=== PATIENT | male | born 1945 | race Caucasian/White ===

== ENCOUNTER 2019-07-27 10:07 | Inpatient (IN) | payer MEDICARE ==
[~2019-07-27] VITALS: Ht 172.7 cm; Wt 67.1 kg
[2019-07-27] MEDS ORDERED: TERA2CAP4 PO (10:31)
[2019-07-27] MEDS ORDERED: TRAM50TA2 PO (10:32)
[2019-07-27] MEDS ORDERED: NYST5ORA PO (10:32)
[2019-07-27] MEDS ORDERED: LISI-607 PO (10:32)
[2019-07-27] MEDS ORDERED: ALPR0.255 PO (10:32)
[2019-07-27] MEDS ORDERED: CIPR500S3 PO (10:32)
[2019-07-27] MEDS ORDERED: CLOP75TA15 PO (10:32)
[2019-07-27] MEDS ORDERED: OXYB10TA2 PO (10:32)
[2019-07-27] MEDS ORDERED: TRIA10PO3 MC (10:32)
[2019-07-27] MEDS ORDERED: GABA-532 PO (10:32)
[2019-07-27] MEDS ORDERED: ARMO250T2 PO (10:32)
[2019-07-27] MEDS ORDERED: MELO-107 PO (10:32)
[2019-07-27] MEDS ORDERED: BENA20TA9 PO (10:36)
[2019-07-27] MEDS ORDERED: CELE100C PO (10:36)
[2019-07-27] MEDS ORDERED: AMLO5TAB4 PO (10:36)
[2019-07-27] MEDS ORDERED: PILO5TAB PO (10:36)
[2019-07-27] MEDS ORDERED: DORZ10DR13 OP (10:37)
[2019-07-27] MEDS ORDERED: LATA2.5D7 OP (10:37)
[2019-07-27] MEDS ORDERED: SIMV20TA6 PO (10:37)
[2019-07-27] MEDS ORDERED: BRIM5DRO5 OP (10:37)
[2019-07-27 10:40] VITALS: BP 119/71
--- NOTE | 2019-07-27 10:40 | NUR ---
CONTENT PUBLISHER NOTES PATIENT DIRECT ADMIT BROUGHT BY AMBULANCE. PATIENT 5150 HOLD ON DX OF GD, PSYCHOSIS NOS. PATIENT A/O X3, NO ACUTE RESPIRATORY DISTRESS, V.S TAKEN T-98.6, P-62, R-18, BP-119/71, O2-96 ROOM AIR. PATIENT REDIRECTABLE, COOPERATIVE, REFUSED SI/HI/AVH AT THIS TIME. ENCOURAGED TO EXPRESS FEELINGS AND CONCERNS. PATIENT AMBULATORY SELF CARE. ON FACE TO FACE ASSESSMENT PATIENT DEPRESS. HAS NO PLANA TO HARM SELF. SKIN ASSESSMENT DONE INTACT, PATIENT USING BATHROOM. BELONGING AND CONTRABAND CHECKED, DR GERONIMO AND DR KELLY AWARE OF NEW PATIENT AND MEDICATION. CONTINUED MONITORING.
[2019-07-27 16:00] VITALS: BP 153/80
[2019-07-27] MEDS ORDERED: MAGNESIUM HYDROXIDE 30 ML UDC PO PRN (16:30)
[2019-07-27] MEDS ORDERED: ZOLPIDEM TARTRATE 10 MG TABLET PO PRN (16:30)
[2019-07-27] MEDS ORDERED: ACETAMINOPHEN 325 MG TABLET PO PRN (16:30)
[2019-07-27] MEDS ORDERED: LORAZEPAM 0.5 MG TABLET PO PRN (16:30)
[2019-07-27] MEDS ORDERED: MAG HYDROX/AL HYDROX/SIMETH 30 ML UDC PO PRN (16:30)
[2019-07-27] MEDS ORDERED: CELECOXIB 100 MG CAPSULE PO PRN (17:00)
[2019-07-27] MEDS ORDERED: PILOCARPINE HCL 5 MG TABLET PO SCH (17:00)
[2019-07-27] MEDS ORDERED: TRAMADOL HCL 50 MG TABLET PO PRN (17:00)
[2019-07-27] MEDS ORDERED: TRIAMCINOLONE ACETONIDE 0.1% CR 15 GM TUBE TP SCH (17:30)
[2019-07-27] MEDS: GABAPENTIN 100 MG CAPSULE PO SCH (17:55)
[2019-07-27] MEDS: BENAZEPRIL HCL 20 MG TABLET PO SCH (17:56)
[2019-07-27] MEDS: AMLODIPINE BESYLATE 5 MG TABLET PO SCH (17:56)
[2019-07-27] MEDS ORDERED: LEVOFLOXACIN (500MG) 500 MG TABLET PO ONE (18:00)
[2019-07-27] MEDS ORDERED: LEVOFLOXACIN (500MG) 500 MG TABLET PO SCH (18:00)
[2019-07-27 18:30] LABS: CALCIUM, SERUM 9.3 mg/dL (8.5-10.1); POTASSIUM 3.7 mmol/L (3.5-5.1)
[2019-07-27] MEDS: TIMOLOL MAL/DORZOLAM HCL OPHTH 10 ML BOTTLE OP SCH (19:28)
[2019-07-27] MEDS: NYSTATIN SUSP 100,000 U/ML BOTTLE PO SCH ×2 (19:28→22:28)
[2019-07-27] MEDS: BRIMONIDINE TARTRATE OPHT SOLN 5 ML BOTTLE OP SCH (19:28)
[2019-07-27 20:00] VITALS: BP 129/71
--- NOTE | 2019-07-27 20:00 | NUR ---
GPS OVERFLOW NOTES PT RECEIVED FROM GPS. PT IS A/OX3, HARD OF HEARING. ON ROOM AIR, BREATHING EVEN AND UNLABORED. DENIES SOB AND PAIN AT THIS TIME. IN NO ACUTE DISTRESS. NO IV ACCESS PER PROTOCOL. ORIENTED PT TO ROOM. CALL LIGHT OUT OF REACH FOR SAFETY. SITTER AT BEDSIDE. BED IN LOW/LOCKED POSITION WITH BILAT. UPPER SIDE RAILS IN PLACE. NO BEHAVIORAL ISSUES NOTED AT THIS TIME. WILL CONTINUE TO MONITOR AND IMPLEMENT FREQUENT SAFETY CHECKS
[2019-07-27] MEDS: SIMVASTATIN 20 MG TABLET PO SCH (21:48)
[2019-07-27] MEDS: LATANOPROST EYE DROP 0.005% 2.5 ML BOTTLE OP SCH (21:48)
[2019-07-27] MEDS: TERAZOSIN HCL 1 MG CAPSULE PO SCH (21:50)
[2019-07-28 06:47] LABS: ALBUMIN 3.3 g/dL (3.4-5.0); BILIRUBIN,TOTAL 0.4 mg/dL (0.2-1.0); POTASSIUM 3.9 mmol/L (3.5-5.1)
[2019-07-28 06:52] LABS: CHOLESTEROL 187 mg/dL (<200); HDL CHOLESTEROL 68 mg/dL (40-60); LDL 105 mg/dL (0-99); TRIGLYCERIDES 61 mg/dL (30-150)
--- NOTE | 2019-07-28 06:59 | NUR ---
GPS OVERFLOW CLOSING NOTES PT AWAKE, SITTING UP IN BED. A/OX3. ON ROOM AIR, BREATHING EVEN AND UNLABORED. DENIES SOB AND PAIN AT THIS TIME. DENIES SI/HI, NO HALLUCINATIONS NOTED. NO BEHAVIORAL ISSUES DURING SHIFT. CALM AND COMPLIANT WITH CARE AND MEDICATIONS. SLEPT APPROX 6 HOURS. ALL NEEDS MET AND ATTENDED. NO SIGNIFICANT CHANGES OVERNIGHT. BED IN LOW/LOCKED POSITION. BILAT. UPPER SIDE RAILS IN PLACE. SITTER AT BEDSIDE. WILL ENDORSE TO DAY SHIFT RN MARICRUZ.
--- NOTE | 2019-07-28 07:25 | NUR ---
GPS OVERFLOW THE PATIENT IS RECEIVED AWAKE AND IN BED. SITTER AT THE BEDSIDE. PATIENT ALERT AND ORIENTED X3 WITH FEW EPISODES OF FORGETFULNESS. PATIENT HARD OF HEARING. DENIES SI/HI. PATIENT CALM AND COOPERATIVE. NO IV ACCESS. PATIENT HAS STABLE GAIT. BED LOW AND LOCKED. SIDE RAILS UP X2. CALL LIGHT WITHIN REACH. WILL CONTINUE TO MONITOR.
[2019-07-28 08:00] VITALS: BP 114/69
[2019-07-28] MEDS: AMLODIPINE BESYLATE 5 MG TABLET PO SCH ×2 (08:43→16:55)
[2019-07-28] MEDS: GABAPENTIN 100 MG CAPSULE PO SCH ×2 (08:43→17:58)
[2019-07-28] MEDS: BENAZEPRIL HCL 20 MG TABLET PO SCH ×2 (08:43→16:55)
[2019-07-28] MEDS: MELOXICAM 7.5 MG TABLET PO SCH (08:43)
[2019-07-28] MEDS: OXYBUTYNIN CHLORIDE 5 MG TABLET PO SCH (08:43)
[2019-07-28] MEDS: CLOPIDOGREL BISULFATE 75 MG TABLET PO SCH (08:43)
[2019-07-28] MEDS: LISINOPRIL (5MG) 5 MG TABLET PO SCH (08:44)
[2019-07-28] MEDS: BRIMONIDINE TARTRATE OPHT SOLN 5 ML BOTTLE OP SCH ×3 (08:45→17:59)
[2019-07-28] MEDS: TIMOLOL MAL/DORZOLAM HCL OPHTH 10 ML BOTTLE OP SCH ×2 (08:45→17:59)
[2019-07-28] MEDS ORDERED: PILOCARPINE HCL 5 MG TABLET PO SCH ×2 (09:00→17:00)
[2019-07-28] MEDS ORDERED: TRIAMCINOLONE TP SCH (09:00)
--- NOTE | 2019-07-28 10:26 | NUR ---
MS/RN NOTE SALAGEN 5 MG IS NOT ADMINISTERED. PER PHARMACY THE MEDICATION IS NOT AVAILABLE IN OUR PHARMACY. FAMILY IS MADE AWARE TO PROVIDE THE MEDICATION.
--- NOTE | 2019-07-28 10:28 | NUR ---
MS/RN NOTE WAITING FOR PHARMACY TO FILL UP THE OMNICELL WITH NYSTATIN. WILL CONTINUE TO FOLLOW UP.
--- NOTE | 2019-07-28 10:30 | NUR ---
GPS OVERFLOW PER PATIENT`S (ITZEL) PATIENT HAS HX OF VASCULAR DEMENTIA FOR 8 YEARS, SHE IS CONCERNED THAT HE MIGHT HAVE ANOTHER CVA AND SHE WANTS TRANSFER THE PATIENT TO [facility] IN [place]. UPON MY ASSESSMENT THE PATIENT HAS NO APPARENT S/S OF CVA. DR KELLY IS MADE AWARE OF `S CONCERNS AND NO NEW ORDER. WILL CONTINUE TO MONITOR.
[2019-07-28] MEDS: NYSTATIN (PYXIS) 500,000 UNIT/5 ML ORAL.SUSP PO SCH ×4 (11:10→21:07)
--- NOTE | 2019-07-28 13:09 | NUR ---
Contact with responsible libertarian: LEXX met with patient�s Letha Mayfield [phone] outside of patient�s room to discuss discharge planning. Letha was agreeable to meet with LEXX. Per Letha, the patient currently suffers from Vascular Dementia and is currently not receiving any medication to treatment its symptoms. Per Letha, the patient was diagnosed with Vascular Dementia in 2012 and it has slowly progressed since. Per Letha, she believes the patient should not be in the unit as "it is not a mental health problem". LEXX provided psychoeducation to Letha regarding 5150, 5250 holds, what the process looks like and why the patient was deemed a danger to himself and a danger to others at the time of evaluation. Letha expressed understanding and was agreeable that he could not seek for safety, had poor judgement and poor insight at the time of evaluation. Letha expressed understanding that the patient benefits from his stay in the donal-psych unit.
--- NOTE | 2019-07-28 13:21 | NUR ---
Initial Discharge plan: LEXX spoke to patient�s , Letha Mayfield [phone] at patient�s bed side to discuss discharge planning. Per Letha, the patient may return home [[address], [facility] [address]] with her when ready for discharge. Per Letha, they are interested in outpatient psychiatry services as the patient is having more continuous episodes of confusion, aggression and paranoia. Per Letha, the patient is not connected with any community resources or outpatient psychiatrist. LEXX provided family with Alzheimer[facility] [place] [facility] [[phone]; [email or web address] ]as they may refer the family to support services in [place], [place]. LEXX will continue to collaborate with Interdisciplinary team to ensure safe and proper discharge planning.
--- NOTE | 2019-07-28 13:30 | NUR ---
LEXX met with patient�s , Letha Mayfield ([phone]), with the pt present and the reason behind the pts admission was discussed as well as what options are available. The pts and the pt himself stated that they do not think that the pts admission is necessary because he has vascular dementia and his conditions is more medical. LEXX stated that the psychiatrist will have to meet with the pt before any decision can be made and that the psychiatrist is the only one who can make a decision at this time. LEXX stated that she will keep them updated regarding his treatment.
--- NOTE | 2019-07-28 15:25 | NUR ---
Group Note: SW encouraged the pt to attend group therapy on 07/28/19 at 2pm but the pt was visiting with his and stated that he did not want to enter the geripsychiatric unit. Pt stated that he does not feel that it was appropriate for him to be placed in that unit with the pt population. SW stated that as he is on a hold he is technically part of the unit and that part of his treatment plan is to participate in group therapy. Pt refused to participate.
--- NOTE | 2019-07-28 15:41 | NUR ---
GPS NOTE RECEIVED TELEPHONE ORDER FROM DR KELLY FOR CT HEAD WITHOUT CONTRAST. THE ORDER IS READ BACK, VERIFIED. NOTED AND CARRIED OUT.
--- NOTE | 2019-07-28 16:49 | NUR ---
GPS OV RN NOTES ITZEL AT BEDSIDE. REQUESTING THAT SHE TAKE PATIENT'S BELONGINGS/CONTRABAND FROM NURSING SAFE AND SHE WILL TAKE THEM HOME. OBTAINED BELONGINGS FROM NURSING RADIO PROGRAM DIRECTOR SAFE. VERIFIED BELONGINGS WITH PATIENT AND ITZEL. INCLUDES, BUT NOT LIMITED TO, PATIENT'S WALLET WITH [place] ID AND CREDIT CARDS, 103$ (20$ X 5 + 1$ X 3), UTILITY KNIFE, CELLPHONE AND COMMERCIAL ACCOUNTANT, KEYS. UPDATED PATIENT'S LIST
[2019-07-28] MEDS ORDERED: LEVOFLOXACIN (500MG) 500 MG TABLET PO SCH ×2 (18:00→18:30)
--- NOTE | 2019-07-28 18:16 | NUR ---
GPS OVERFLOW THE PATIENT ALERT AND ORIENTED X3 WITH SHORT EPISODES OF FORGETFULNESS. REMINDERS PROVIDED NEEDED. DENIES PAIN. RESPIRATION REGULAR AND UNLABORED. IN ROOM AIR AND SATURATION IS AT 98%. PATIENT IN NO APPARENT DISTRESS. NO IV ACCESS. THE PATIENT IS GIVEN VERBAL CUES TO KEEP SAFETY AWARENESS HIGH. ALL NEEDS ATTENDED AND ANTICIPATED. BED LOW AND LOCKED. SIDE RAILS UP X2. WILL ENDORSE TO MANAGER COST.
[2019-07-28 19:18] VITALS: BP 92/52
--- NOTE | 2019-07-28 19:30 | NUR ---
GPS/RN OPENING NOTES PT RECEIVED AWAKE, RESTING COMFORTABLY IN BED. SITTER AT BEDSIDE. A/OX3. ON ROOM AIR, BREATHING EVEN AND UNLABORED. DENIES SOB AND PAIN AT THIS TIME. NO IV ACCESS PER PROTOCOL. DENIES SI/HI. DENIES HALLUCINATIONS. CALM AND COOPERATIVE. BED IN LOW/LOCKED POSITION WITH CALL LIGHT OUT OF REACH FOR PT SAFETY. HOB ELEVATED AND BILAT. UPPER SIDE RAILS IN PLACE. WILL CONTINUE TO MONITOR
[2019-07-28 20:00] VITALS: BP 92/53
[2019-07-28 21:00] VITALS: BP 92/56
[2019-07-28] MEDS: LATANOPROST EYE DROP 0.005% 2.5 ML BOTTLE OP SCH (21:07)
[2019-07-28] MEDS: SIMVASTATIN 20 MG TABLET PO SCH (21:07)
[2019-07-28] MEDS: TERAZOSIN HCL 1 MG CAPSULE PO SCH (21:10)
--- NOTE | 2019-07-29 06:41 | NUR ---
GPS/RN CLOSING NOTES PT ASLEEP, SITTER AT BEDSIDE. PT IS RESPONSIVE TO NAME/LIGHT TOUCH. A/OX3. HAS BILATERAL HEARING AIDS AT THE BEDSIDE. ON ROOM AIR, BREATHING EVEN AND UNLABORED. DENIES SOB AND PAIN. NO IV ACCESS PER PROTOCOL. DENIES SI/HI AND HALLUCINATIONS. NO SIGNIFICANT CHANGES OVERNIGHT. ALL NEEDS MET AND ANTICIPATED. MED COMPLIANT, CALM AND COOPERATIVE. NO BEHAVIORAL ISSUES NOTED. SLEPT APPROX. 8HOURS. BED IN LOW/LOCKED POSITION WITH CALL LIGHT OUT OF REACH FOR SAFETY. BILAT. UPPER SIDE RAILS IN PLACE. WILL ENDORSE TO DAY SHIFT RN MARICRUZ.
[2019-07-29] MEDS: BRIMONIDINE TARTRATE OPHT SOLN 5 ML BOTTLE OP SCH (08:59)
[2019-07-29] MEDS: TIMOLOL MAL/DORZOLAM HCL OPHTH 10 ML BOTTLE OP SCH (08:59)
[2019-07-29 09:00] VITALS: BP 108/63
[2019-07-29] MEDS ORDERED: ESCITALOPRAM OXALATE (10 MG) 10 MG TABLET PO SCH (09:00)
[2019-07-29] MEDS: MELOXICAM 7.5 MG TABLET PO SCH (09:00)
[2019-07-29] MEDS: LISINOPRIL (5MG) 5 MG TABLET PO SCH (09:00)
[2019-07-29] MEDS: AMLODIPINE BESYLATE 5 MG TABLET PO SCH (09:00)
[2019-07-29] MEDS: BENAZEPRIL HCL 20 MG TABLET PO SCH (09:00)
[2019-07-29] MEDS: OXYBUTYNIN CHLORIDE 5 MG TABLET PO SCH (09:02)
[2019-07-29] MEDS: GABAPENTIN 100 MG CAPSULE PO SCH (09:02)
[2019-07-29] MEDS: CLOPIDOGREL BISULFATE 75 MG TABLET PO SCH (09:03)
[2019-07-29] MEDS: NYSTATIN (PYXIS) 500,000 UNIT/5 ML ORAL.SUSP PO SCH (09:04)
--- NOTE | 2019-07-29 10:53 | NUR ---
LEXX called the patient�s , Letha Mayfield ([phone]), and informed her that the pts hold is being broken by the MD and that the pt can be discharged back home today. She stated that she will be arriving around 12.
--- NOTE | 2019-07-29 12:55 | NUR ---
CLOTH STRETCHER NOTES PT STABLE AT DISCHARGE. NO SI OR HI. PER DR GRAZYNA SRINIVASAN TO DISCHARGE HOME AND DISCHARGE HOLD. ALL PATIENT BELONGINGS ACCOUNTED AND SENT HOME WITH PATIENT. ID BAND REMOVED. ITZEL WILL TRANSPORT PATIENT HOME IN PRIVATE CAR. PT ESCORTED OFF OF UNIT AND OUT OF HOSPITAL BY RN ACCOMPANIED BY .
--- NOTE | 2019-07-29 15:09 | NUR ---
Discharge Note: Pt was discharged home to [address] [place] [id number]. Pt was picked up by his , Letha ([phone]), at 12pm. Upon discharge, the pt appeared to be in a euthymic mood and presented with a calm affect. The pt stated that he did not need to be in the hospital and was grateful that the doctor broke the hold. The pt denied suicidal and homicidal ideation as well as auditory and visual hallucinations. The pt will continue to be under the care of his psychiatrist, Dr. Jose Montes De Oca, located at [address] [place] [address]; ; fax of records was sent to: [phone]. Pt has an appointment on 07/30/19 at 10am. Pt will also be under the care of his sound effects person, Dr. Nice, located at [address] [facility] [address], [place] [address]; .
== END 2019-07-29 13:52 | disposition home or self-care (01) | DRG 881 ==
LOC: GPS 10:07 → MEDSG2 19:55 → GPSOV2 22:46
PROVIDERS: ADMIT Psychiatry & Neurology Psychiatry; ATTEND Family Medicine
DX: F32.9 Major depressive disorder, single episode, unspecified (principal); H40.9 Unspecified glaucoma; I10 Essential (primary) hypertension; I67.2 Cerebral atherosclerosis; M19.90 Unspecified osteoarthritis, unspecified site; Z73.6 Limitation of activities due to disability; F03.90 Unspecified dementia, unspecified severity, without behavioral disturbance, psychotic disturbance, mood disturbance, and anxiety; R90.89 Other abnormal findings on diagnostic imaging of central nervous system; Z96.651 Presence of right artificial knee joint; G47.33 Obstructive sleep apnea (adult) (pediatric)
CPT/HCPCS: 36415; 70450-TC; 80048-TC; 80053-TC; 80061-TC; A4217; A6403